=== PATIENT | female | born 1935 | race Hispanic/Latino ===

== ENCOUNTER → 2017-09-07 | Day surgery (SDC) | payer OTHER ==
[2017-09-04 12:50] LABS: BASOPHILS % 0.3 % (0.0-1.0); EOSINOPHILS # (AUTO) 0.2 (0.0-0.4); EOSINOPHILS % 2.6 % (0.0-6.0); HEMATOCRIT 42.4 % (34.2-44.1); HEMOGLOBIN 14.2 g/dL (12.0-16.0); LYMPHOCYTES # (AUTO) 2.5 (1.0-3.2); LYMPHOCYTES % 35.9 % (18.0-39.1); MEAN CORPUSCULAR HEMOGLOBIN 31.5 pg (28-32); MEAN CORPUSCULAR HGB CONC 33.5 g/dL (31-35); MONOCYTES # (AUTO) 0.4 (0.2-0.8); MONOCYTES % 5.9 % (4.4-11.3); NEUTROPHILS # (AUTO) 3.8 (2.1-6.9); NEUTROPHILS % 54.9 % (38.7-80.0); PLATELET COUNT 138 x10e3/uL (140-360); RED BLOOD COUNT 4.51 x10e6/uL (3.6-5.1); RED CELL DISTRIBUTION WIDTH 13.8 % (11.7-14.4)
[2017-09-04 13:12] LABS: ANION GAP 12.9 mmol/L (8-16); BLOOD UREA NITROGEN 12 mg/dL (7-26); BUN/CREATININE RATIO 14 (6-25); CALCIUM 8.8 mg/dL (8.4-10.2); CARBON DIOXIDE 22 mmol/L (22-29); CHLORIDE 112 mmol/L (98-107); CREATININE, SERUM 0.84 mg/dL (0.57-1.11); EST GLOMERULAR FILTRATION RATE > 60 ML/MIN (60-); GLUCOSE 144 mg/dL (74-118); POTASSIUM 3.9 mmol/L (3.5-5.1); SODIUM 143 mmol/L (136-145)
--- NOTE | 2017-09-04 15:50 | Diagnostic Imaging Report ---
PROCEDURE: Frontal and lateral views of the chest. COMPARISON: Patients [facility], , CHEST 2 VIEWS, 03/11/2017, 8:28. INDICATIONS: PRE-OPERATIVE CHEST X-RAY FOR MASTECTOMY FINDINGS: Lines/tubes: None. Lungs: The lungs are well inflated and clear. There is no evidence of pneumonia or pulmonary edema. Pleura: There is no pleural effusion or pneumothorax. Stable linear calcification in the lateral left hemithorax, likely pleural. Heart and mediastinum: The heart and the mediastinum are normal. Bones: No acute bony abnormality. Degenerative changes in the thoracic spine. IMPRESSION: 1. No acute cardiopulmonary abnormalities. Jovanni Zhang M.D. Dictated by: Jovanni Zhang M.D. on 09/04/2017 at 15:59 Electronically approved by: Jovanni Zhang M.D. on 09/04/2017 at 15:59
[~2017-09-07] MED LIST: ACETAMINOPHEN 1000 MG/100 ML IV ONE; AMLODIPINE BESY10 MG PO; CLONIDINE HCL0.1 MG PO; DEXAMETHASONE SOD PHOS INJ 4 MG/ML VIAL ONE; EPHEDRINE SULFATE INJ 50 MG/10 ML SYR ONE; FARXIGA; FENTANYL CITRATE/PF 100MCG/2 ML INJ ONE; GLIPIZIDE; HYDROCODONE/APAP 7.5MG-325MG 1 EA TAB ONE; KEFLEX500 MG PO; LEVOTHROID137 MCG PO; LIDOCAINE HCL 2% LOCAL INJ 5 ML SDV VIAL INJ ONE; LORAZEPAM0.5 MG PO; LOSARTAN POTAS100 MG PO; LOSARTAN-HCTZ1 EAC2; NORCO 5-325 TA1 EACH PO; NYSTATIN1 EAC1 PO; OMEPRAZOLE40 MG PO; ONDANSETRON HCL INJ 2 MG/ML VIAL ONE; PROPOFOL IV EMULSION 10 MG/ML 20 ML VIAL ONE; ROCURONIUM BROMIDE 10 MG/ML 5ML VIAL ONE; SEVOFLURANE INHAL SOLN 250 ML PEN BTL ONE; ULTRAM50 MG PO
--- NOTE | 2017-09-07 13:20 | Operative Report ---
DATE OF PROCEDURE: September 07, 2017 PREOPERATIVE DIAGNOSIS: Carcinoma of the right breast. POSTOPERATIVE DIAGNOSIS: Carcinoma of the right breast. OPERATION PERFORMED: Right total mastectomy. ANESTHESIA: General. COMPLICATIONS: None. ESTIMATED BLOOD LOSS: 25 mL. DESCRIPTION OF PROCEDURE: With the patient lying in bed in the supine position, under good general anesthesia, the right chest and breast were prepped with Betadine solution and draped in the usual manner. An elliptical incision was made to include the nipple-areolar complex as well as the previous biopsy site. Flaps were then developed at the superficial fascial level in all directions. The limits of the dissection were superiorly the clavicle, medially the sternum, inferiorly the rectus fascia, and laterally the latissimus muscle. The breast tissue was then taken off of the pectoralis major fascia with the cautery, and perfect hemostasis was ascertained. The lateral border of pectoralis major muscle was then dissected, and the breast tissue was totally removed. The specimen was sent for pathological examination. The whole area was then thoroughly irrigated. Perfect hemostasis was ascertained. Two #10 flat Marcelino-Benedict drains were left, one in the axilla and the other one in the pectoralis major, sutured to the skin with 2-0 silk. The skin was then closed with interrupted vertical mattress sutures of 2-0 and 3-0 silk. A dressing was applied. The sponge, lap and needle count was correct. Patient tolerated the procedure well and returned to the recovery room in stable condition. Job#: [id number]
== END | disposition home or self-care (01) ==
LOC: OR 06:46
PROVIDERS: ATTEND Surgery
DX: C50.911 Malignant neoplasm of unspecified site of right female breast (principal); I10 Essential (primary) hypertension; K21.9 Gastro-esophageal reflux disease without esophagitis; E11.9 Type 2 diabetes mellitus without complications; F32.9 Major depressive disorder, single episode, unspecified; Z01.810 Encounter for preprocedural cardiovascular examination; Z01.812 Encounter for preprocedural laboratory examination; Z01.818 Encounter for other preprocedural examination
CPT/HCPCS: 19303; 36415 ×2; 71046; 80048; 82948; 85025; 88307; 93005; J1100; J2001; J2405

== ENCOUNTER 2018-01-27 00:17 | Emergency (ER) | payer MEDICARE, OTHER ==
[~2018-01-27] VITALS: Ht 160 cm; Wt 83.0 kg
[~2018-01-27 00:17] MED LIST changes: -ACETAMINOPHEN 1000 MG/100 ML IV ONE; -DEXAMETHASONE SOD PHOS INJ 4 MG/ML VIAL ONE; -EPHEDRINE SULFATE INJ 50 MG/10 ML SYR ONE; -FENTANYL CITRATE/PF 100MCG/2 ML INJ ONE; -HYDROCODONE/APAP 7.5MG-325MG 1 EA TAB ONE; -LIDOCAINE HCL 2% LOCAL INJ 5 ML SDV VIAL INJ ONE; -ONDANSETRON HCL INJ 2 MG/ML VIAL ONE; -PROPOFOL IV EMULSION 10 MG/ML 20 ML VIAL ONE; -ROCURONIUM BROMIDE 10 MG/ML 5ML VIAL ONE; -SEVOFLURANE INHAL SOLN 250 ML PEN BTL ONE
--- OUTSIDE RECORDS SUMMARY | 2018-01-27 00:20 | XMS REPORT ---
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 Allergies, Adverse Reactions, Alerts This patient has no known allergies or adverse reactions. Medications This patient has no known medications. Results Test Description Test Time Test Comments Text Results Atomic Results Result Comments CHEST [address] [facility] [address] [id number] Patient Name: AILYN RODNEY MR #: [id number] : 1935 Age/Sex: 81/F Req #: [id number] Adm Physician: Ordered by: PATTIE JOHNSON MD Report #: [id number] Location: OR Room/Bed: Procedure: [id number] DX/CHEST 2 VIEWS Exam Date: 09/04/17 Exam Time: 1202 REPORT STATUS: Signed PROCEDURE: Frontal and lateral views of the chest. COMPARISON: [facility], CHEST 2 VIEWS, 2016, 8:28. INDICATIONS: PRE-OPERATIVE CHEST X-RAY FOR MASTECTOMY FINDINGS: Lines/tubes: None. Lungs: The lungs are well inflated and clear. There is no evidence of pneumonia or pulmonary edema. Pleura: There is no pleural effusion or pneumothorax. Stable linear calcification in the lateral left hemithorax, likely pleural. Heart and mediastinum: The heart and the mediastinum are normal. Bones: No acute bony abnormality. Degenerative changes in the thoracic spine. IMPRESSION: 1. No acute cardiopulmonary abnormalities. Efren Zhang M.D. Dictated by: Efren Zhang M.D. on 09/04/2017 at 15: 59 Electronically approved by: Efren Zhang M.D. on 09/04/2017 at 15:59 Dictated By: EFREN ZHANG MD [id number] Transcribed By: GENI on 09/04/17 [id number] COPY TO: PATTIE JOHNSON MD
[2018-01-27] MEDS ORDERED: TRAMADOL HCL 50 MG TAB PO ONE (01:00)
[2018-01-27] MEDS ORDERED: ONDANSETRON HCL 4 MG ORAL DISINTEGRATING TAB PO ONE (01:00)
[2018-01-27 01:12] LABS: BASOPHILS % 0.4 % (0.0-1.0); EOSINOPHILS # (AUTO) 0.2 (0.0-0.4); EOSINOPHILS % 1.7 % (0.0-6.0); HEMOGLOBIN 14.1 g/dL (12.0-16.0); LYMPHOCYTES # (AUTO) 1.8 (1.0-3.2); LYMPHOCYTES % 18.9 % (18.0-39.1); MEAN CORPUSCULAR HEMOGLOBIN 30.4 pg (28-32); MEAN CORPUSCULAR HGB CONC 33.6 g/dL (31-35); MEAN CORPUSCULAR VOLUME 90.5 fL (81-99); MONOCYTES # (AUTO) 0.5 (0.2-0.8); MONOCYTES % 4.7 % (4.4-11.3); NEUTROPHILS # (AUTO) 7.1 (2.1-6.9); NEUTROPHILS % 74.1 % (38.7-80.0); PLATELET COUNT 120 x10e3/uL (140-360); RED BLOOD COUNT 4.64 x10e6/uL (3.6-5.1); RED CELL DISTRIBUTION WIDTH 13.4 % (11.7-14.4)
[2018-01-27 01:21] LABS: BILIRUBIN,URINE NEGATIVE (NEGATIVE); CLARITY,URINE CLEAR (CLEAR); COLOR,URINE YELLOW (YELLOW); KETONES,URINE NEGATIVE (NEGATIVE); LEUKOCYTE ESTERASE ,URINE NEGATIVE (NEGATIVE); NITRITE,URINE NEGATIVE (NEGATIVE); PROTEIN,URINE DIPSTICK NEGATIVE (NEGATIVE); URINE UROBILINOGEN 0.2 mg/dL (0.2 - 1)
[2018-01-27 01:24] LABS: ALANINE AMINOTRANSFERASE 29 IU/L (0-55); ALBUMIN 3.8 g/dL (3.5-5.0); ALBUMIN/GLOBULIN RATIO 1.1 (0.8-2.0); ALKALINE PHOSPHATASE 108 IU/L (40-150); ANION GAP 11.9 mmol/L (8-16); BLOOD UREA NITROGEN 13 mg/dL (7-26); BUN/CREATININE RATIO 15 (6-25); CALCIUM 9.2 mg/dL (8.4-10.2); CARBON DIOXIDE 21 mmol/L (22-29); CHLORIDE 111 mmol/L (98-107); CREATININE, SERUM 0.85 mg/dL (0.57-1.11); EST GLOMERULAR FILTRATION RATE > 60 ML/MIN (60-); GLUCOSE 135 mg/dL (74-118); POTASSIUM 3.9 mmol/L (3.5-5.1); SODIUM 140 mmol/L (136-145)
--- NOTE | 2018-01-27 01:36 | Diagnostic Imaging Report ---
EXAM: CT Abdomen and Pelvis WITHOUT contrast INDICATION: Flank pain COMPARISON: None. TECHNIQUE: Abdomen and pelvis were scanned utilizing a multidetector helical scanner from the lung base to the pubic symphysis without administration of IV contrast. Absence of intravenous contrast decreases sensitivity for detection of focal lesions and vascular pathology. Coronal and sagittal reformations were obtained. Stone protocol is performed. IV CONTRAST: None. ORAL CONTRAST: Water RADIATION DOSE: Total DLP: 610.42 mGy*cm Estimated effective dose: (DLP x 0.015 x size factor) mSv COMPLICATIONS: None FINDINGS: LINES and TUBES: None. LOWER THORAX: Mosaic attenuation of the lung bases compatible with areas of air trapping or edema. The heart is mildly enlarged and demonstrate small pericardial effusion. HEPATOBILIARY: The liver is mildly nodular in contour. No focal hepatic lesions. No biliary ductal dilation. GALLBLADDER: There are cholecystectomy clips. SPLEEN: No splenomegaly. PANCREAS: No focal masses or ductal dilatation. ADRENALS: No adrenal nodules KIDNEYS/URETERS: No hydronephrosis. No cystic or solid mass lesions. No stones. GI TRACT: No abnormal distention, wall thickening, or evidence of bowel obstruction. There are diverticula within the colon without evidence of diverticulitis. Appendix is not clearly identified. There is however no fat stranding or adenopathy in the right lower quadrant to suggest appendicitis. PELVIC ORGANS/BLADDER: There are postop changes of hysterectomy and bilateral oophorectomies. LYMPH NODES: No lymphadenopathy. VESSELS: There is moderate atherosclerotic disease in the aorta and major arterial branches. PERITONEUM / RETROPERITONEUM: No free air or fluid. BONES: There are degenerative changes in the lumbar spine. SOFT TISSUES: Unremarkable. IMPRESSION: 1. No evidence of nephrolithiasis or hydronephrosis. 2. No evidence of acute intra-abdominal or pelvic abnormality. Signed by: Dr. Jose Manuel Carvalho M.D. on 01/27/2018 1:32 AM
[2018-01-27 01:41] LABS: BACTERIA,URINE RARE /HPF; EPITHELIAL CELLS,URINE FEW /LPF; RBC,URINE 0-5 /HPF (0-5)
== END 2018-01-27 02:40 | disposition home or self-care (01) ==
LOC: ER 00:17
DX: R10.31 Right lower quadrant pain (principal); N30.90 Cystitis, unspecified without hematuria; I10 Essential (primary) hypertension; E11.9 Type 2 diabetes mellitus without complications; E03.9 Hypothyroidism, unspecified; Z85.3 Personal history of malignant neoplasm of breast
CPT/HCPCS: 36415; 74176; 80053; 81001; 85025; 99284

== ENCOUNTER → 2020-02-07 | Day surgery (SDC) | payer OTHER ==
[2020-02-03 15:22] LABS: BASOPHILS # (AUTO) 0.1 (0.0-0.1); BASOPHILS % 0.7 % (0.0-1.0); EOSINOPHILS # (AUTO) 0.2 (0.0-0.4); EOSINOPHILS % 2.7 % (0.0-6.0); HEMATOCRIT 44.3 % (34.2-44.1); HEMOGLOBIN 14.2 g/dL (12.0-16.0); LYMPHOCYTES # (AUTO) 2.7 (1.0-3.2); LYMPHOCYTES % 36.4 % (18.0-39.1); MEAN CORPUSCULAR HEMOGLOBIN 29.7 pg (28-32); MEAN CORPUSCULAR HGB CONC 32.1 g/dL (31-35); MEAN CORPUSCULAR VOLUME 92.7 fL (81-99); MONOCYTES # (AUTO) 0.5 (0.2-0.8); MONOCYTES % 6.2 % (4.4-11.3); NEUTROPHILS % 53.7 % (38.7-80.0); PLATELET COUNT 146 x10e3/uL (140-360); RED BLOOD COUNT 4.78 x10e6/uL (3.6-5.1)
[~2020-02-07] MED LIST changes: +ANASTROZOLE1 MG PO; +BALANCED SALT SOLN (OPTH) 15 ML BTL IO ONE; +BENTY PO; +BENTYL PO; +CELEBREX100 MG PO; +DIOVAN160 MG PO; +ELIQUIS2.5 MG PO; +FENTANYL CITRATE/PF 100MCG/2 ML INJ ONE; +HYDRALAZINE HCL10 MG PO; +JARDIANCE10 MG PO; +LIDOCAINE 2% /EPINEPHRINE 20 ML SDV INJ ONE; +LIDOCAINE HCL 2% LOCAL INJ 5 ML SDV VIAL INJ ONE; +MIDAZOLAM HCL 2 MG/2 ML VIAL ONE; +NEOMYCIN/POLYMYXIN/DEX (OPTH) 3.5 GM TUBE ONE; +NIFEDIPINE10 MG PO; +POVIDONE IODINE 5% (OPTH) 30 ML BTL ONE; +PROPOFOL IV EMULSION 10 MG/ML 20 ML VIAL ONE; +SENNA S TABLET1 EACH PO; +ZANAFLEX4 M1 PO
[2020-02-07 17:05] VITALS: BP 164/74
== END | disposition home or self-care (01) ==
LOC: OR 12:03
PROVIDERS: ATTEND Ophthalmology
DX: H02.834 Dermatochalasis of left upper eyelid (principal); H02.831 Dermatochalasis of right upper eyelid; I10 Essential (primary) hypertension; E03.9 Hypothyroidism, unspecified; E11.9 Type 2 diabetes mellitus without complications; Z01.810 Encounter for preprocedural cardiovascular examination; Z01.812 Encounter for preprocedural laboratory examination; Z11.59 Encounter for screening for other viral diseases; Z79.84 Long term (current) use of oral hypoglycemic drugs
CPT/HCPCS: 36415; 82948; 85025; 87635; 93005; J2001; J2250; J3010

== ENCOUNTER → 2020-12-18 | Outpatient (CLI) | payer OTHER ==
[~2020-12-18] MED LIST changes: -BALANCED SALT SOLN (OPTH) 15 ML BTL IO ONE; -FENTANYL CITRATE/PF 100MCG/2 ML INJ ONE; -LIDOCAINE 2% /EPINEPHRINE 20 ML SDV INJ ONE; -LIDOCAINE HCL 2% LOCAL INJ 5 ML SDV VIAL INJ ONE; -MIDAZOLAM HCL 2 MG/2 ML VIAL ONE; -NEOMYCIN/POLYMYXIN/DEX (OPTH) 3.5 GM TUBE ONE; -POVIDONE IODINE 5% (OPTH) 30 ML BTL ONE; -PROPOFOL IV EMULSION 10 MG/ML 20 ML VIAL ONE
== END ==
LOC: DX 10:11
PROVIDERS: ATTEND Internal Medicine Hematology & Oncology
DX: C50.112 Malignant neoplasm of central portion of left female breast (principal)
CPT/HCPCS: 77080

== ENCOUNTER 2024-05-10 22:06 | Emergency (ER) | payer MEDICARE, OTHER ==
[~2024-05-10] VITALS: Ht 160 cm; Wt 80.7 kg
[2024-05-10 22:23] VITALS: TEMP 98.5
[2024-05-10] MEDS: TRAMADOL HCL 50 MG TAB PO STA (22:32)
[2024-05-10] MEDS: Morphine 4mg INJECTION 4 MG/ML INJ IM STA (23:53)
[2024-05-11] MEDS ORDERED: ULTRAM 50MG50 MG PO (00:02)
[2024-05-11] MEDS: ACETAMINOPHEN 325 MG TAB PO ONE (00:46)
[2024-05-11 01:30] VITALS: PULSE 58; RESP 18; O2SAT 97
== END 2024-05-11 01:30 | disposition home or self-care (01) ==
LOC: ER 22:10
DX: M25.511 Pain in right shoulder (principal); I16.0 Hypertensive urgency; I10 Essential (primary) hypertension; E11.9 Type 2 diabetes mellitus without complications; E03.9 Hypothyroidism, unspecified; F32.A Depression, unspecified; Z85.3 Personal history of malignant neoplasm of breast; Z96.651 Presence of right artificial knee joint
CPT/HCPCS: 73030; 99282; J2270

== ENCOUNTER 2024-07-12 04:28 | Emergency (ER) | payer MEDICARE, OTHER ==
[~2024-07-12] VITALS: Ht 160 cm; Wt 80.7 kg
[~2024-07-12 04:28] MED LIST changes: +ULTRAM 50MG50 MG PO
[2024-07-12 04:31] VITALS: TEMP 97.7
[2024-07-12 04:49] LABS: BASOPHILS % 0.4 % (0.0-1.0); EOSINOPHILS # (AUTO) 0.2 (0.0-0.4); EOSINOPHILS % 2.1 % (0.0-6.0); HEMATOCRIT 40.3 % (34.2-44.1); HEMOGLOBIN 12.9 g/dL (12.0-16.0); LYMPHOCYTES # (AUTO) 2.1 (1.0-3.2); LYMPHOCYTES % 28.3 % (18.0-39.1); MEAN CORPUSCULAR HEMOGLOBIN 30.9 pg (28-32); MEAN CORPUSCULAR VOLUME 96.6 fL (81-99); MONOCYTES # (AUTO) 0.5 (0.2-0.8); MONOCYTES % 6.6 % (4.4-11.3); NEUTROPHILS # (AUTO) 4.7 (2.1-6.9); NEUTROPHILS % 62.3 % (38.7-80.0); PLATELET COUNT 157 x10e3/uL (140-360); RED BLOOD COUNT 4.17 x10e6/uL (3.6-5.1); RED CELL DISTRIBUTION WIDTH 12.6 % (11.7-14.4); WHITE BLOOD COUNT 7.56 x10e3/uL (4.8-10.8)
[2024-07-12] MEDS: Morphine 4mg INJECTION 4 MG/ML INJ IV ONE (04:49)
[2024-07-12] MEDS: HYDRALAZINE HCL 20 MG/ML VIAL IV STA (04:50)
[2024-07-12] MEDS: ONDANSETRON HCL INJ 2MG/ML 2ML 2 MG/ML VIAL IV STA (04:50)
[2024-07-12 05:14] LABS: ALBUMIN 4.2 g/dL (3.5-5.0); ALBUMIN/GLOBULIN RATIO 1.1 (0.8-2.0); ANION GAP 14.9 mmol/L (8-16); BILIRUBIN,TOTAL 0.5 mg/dL (0.2-1.2); CREATININE, SERUM 1.06 mg/dL (0.57-1.11); POTASSIUM 3.9 mmol/L (3.5-5.1); TOTAL PROTEIN 8.1 g/dL (6.5-8.1)
[2024-07-12 05:20] LABS: TROPONIN I 0.009 ng/mL (0-0.300)
[2024-07-12 05:25] LABS: BILIRUBIN,URINE NEGATIVE (NEGATIVE); CLARITY,URINE SL CLOUDY (CLEAR); COLOR,URINE YELLOW (YELLOW); GLUCOSE, URINE NEGATIVE (NEGATIVE); KETONES,URINE NEGATIVE (NEGATIVE); LEUKOCYTE ESTERASE ,URINE TRACE (NEGATIVE); NITRITE,URINE POSITIVE (NEGATIVE); PH,URINE 6.5 (5 - 7); PROTEIN,URINE DIPSTICK NEGATIVE (NEGATIVE); URINE UROBILINOGEN 0.2 mg/dL (0.2 - 1)
[2024-07-12 05:31] LABS: BACTERIA,URINE MANY /HPF; EPITHELIAL CELLS,URINE FEW /LPF; RBC,URINE 0-5 /HPF (0-5)
[2024-07-12] MEDS ORDERED: IOPAMIDOL 370 MG/ML 100 ML INFUS..BTL INJ ONE (05:33)
[2024-07-12] MEDS: ACETAMINOPHEN 325 MG TAB PO ONE (05:37)
[2024-07-12 05:38] VITALS: PULSE 86; RESP 14
[2024-07-12] MEDS ORDERED: CEFTRIAXONE 1 GM VIAL ONE (05:57)
[2024-07-12] MEDS ORDERED: LEVOFLOXACIN750 MG PO (07:26)
[2024-07-12 09:08] VITALS: BP 111/64; PULSE 74; RESP 17; O2SAT 96
== END 2024-07-12 09:11 | disposition home or self-care (01) ==
LOC: ER 04:31
DX: R10.12 Left upper quadrant pain (principal); J18.9 Pneumonia, unspecified organism; N39.0 Urinary tract infection, site not specified; I10 Essential (primary) hypertension; E11.65 Type 2 diabetes mellitus with hyperglycemia; E03.9 Hypothyroidism, unspecified; F32.A Depression, unspecified; R94.31 Abnormal electrocardiogram [ECG] [EKG]; Z85.3 Personal history of malignant neoplasm of breast; Z96.651 Presence of right artificial knee joint
CPT/HCPCS: 36415; 71045; 74177; 80053; 81001; 82550; 83690; 84484; 85025; 93005; 99284; J0360; J0696; J2270; J2405; J2470; Q9967

== ENCOUNTER 2024-08-01 22:47 | Observation (INO) | payer MEDICARE, OTHER ==
[~2024-08-01] VITALS: Ht 160 cm; Wt 80.7 kg
[~2024-08-01 22:47] MED LIST changes: +LEVOFLOXACIN750 MG PO
[2024-08-01 23:12] VITALS: TEMP 98
[2024-08-01] MEDS: SODIUM CHLORIDE 0.9% 1000ML 1,000 ML IV STA (23:44)
[2024-08-01] MEDS: KETOROLAC TROMETHAMINE 30 MG/ML VIAL IV STA (23:44)
[2024-08-01 23:57] LABS: BASOPHILS % 0.7 % (0.0-1.0); EOSINOPHILS # (AUTO) 0.2 (0.0-0.4); EOSINOPHILS % 3.1 % (0.0-6.0); HEMOGLOBIN 12.3 g/dL (12.0-16.0); LYMPHOCYTES # (AUTO) 2.4 (1.0-3.2); LYMPHOCYTES % 42.3 % (18.0-39.1); MEAN CORPUSCULAR HEMOGLOBIN 30.5 pg (28-32); MEAN CORPUSCULAR HGB CONC 31.5 g/dL (31-35); MEAN CORPUSCULAR VOLUME 96.8 fL (81-99); MONOCYTES # (AUTO) 0.4 (0.2-0.8); MONOCYTES % 6.6 % (4.4-11.3); NEUTROPHILS # (AUTO) 2.7 (2.1-6.9); NEUTROPHILS % 47.1 % (38.7-80.0); PLATELET COUNT 152 x10e3/uL (140-360); RED BLOOD COUNT 4.03 x10e6/uL (3.6-5.1); RED CELL DISTRIBUTION WIDTH 12.7 % (11.7-14.4); WHITE BLOOD COUNT 5.74 x10e3/uL (4.8-10.8)
[2024-08-02 00:10] LABS: CLARITY,URINE CLEAR (CLEAR); COLOR,URINE YELLOW (YELLOW)
[2024-08-02 00:11] LABS: BILIRUBIN,URINE NEGATIVE (NEGATIVE); GLUCOSE, URINE NEGATIVE (NEGATIVE); KETONES,URINE NEGATIVE (NEGATIVE); LEUKOCYTE ESTERASE ,URINE TRACE (NEGATIVE); NITRITE,URINE NEGATIVE (NEGATIVE); PH,URINE 6 (5 - 7); PROTEIN,URINE DIPSTICK NEGATIVE (NEGATIVE); URINE UROBILINOGEN 0.2 mg/dL (0.2 - 1)
[2024-08-02 00:14] LABS: BACTERIA,URINE MANY /HPF; EPITHELIAL CELLS,URINE FEW /LPF; RBC,URINE 0-5 /HPF (0-5)
[2024-08-02 00:20] LABS: ALANINE AMINOTRANSFERASE 11 IU/L (0-55); ALBUMIN/GLOBULIN RATIO 1.1 (0.8-2.0); ALKALINE PHOSPHATASE 82 IU/L (40-150); ANION GAP 11.9 mmol/L (8-16); BILIRUBIN,TOTAL 0.4 mg/dL (0.2-1.2); BLOOD UREA NITROGEN 16 mg/dL (7-26); BUN/CREATININE RATIO 16 (6-25); CALCIUM 9.4 mg/dL (8.4-10.2); CARBON DIOXIDE 27 mmol/L (22-29); CHLORIDE 105 mmol/L (98-107); CREATINE KINASE 112 IU/L (29-168); CREATININE, SERUM 0.99 mg/dL (0.57-1.11); EST GLOMERULAR FILTRATION RATE 55 ML/MIN (>=60); GLUCOSE 129 mg/dL (74-118); LIPASE 96 U/L (8-78); POTASSIUM 3.9 mmol/L (3.5-5.1); SODIUM 140 mmol/L (136-145); TOTAL PROTEIN 7.5 g/dL (6.5-8.1)
[2024-08-02 00:25] LABS: TROPONIN I < 0.05 ng/mL (0.0-0.40)
[2024-08-02] MEDS ORDERED: IOPAMIDOL 370 MG/ML 100 ML INFUS..BTL INJ ONE (00:36)
[2024-08-02] MEDS: HYDRALAZINE HCL 20 MG/ML VIAL IV STA (01:10)
[2024-08-02] MEDS ORDERED: METOPROLOL TARTRATE INJ 1 MG/ML VIAL IV STA (02:10)
[2024-08-02] MEDS ORDERED: ONDANSETRON HCL INJ 2MG/ML 2ML 2 MG/ML VIAL IV PRN (03:15)
[2024-08-02] MEDS ORDERED: Morphine 2mg Syringe 2 MG/ML SYR IV PRN (03:15)
[2024-08-02] MEDS: SODIUM CHLORIDE 0.9% 1000ML 1,000 ML IV SCH (03:42)
[2024-08-02] MEDS: METHYLPREDNISOLONE SOD SUCC 125 MG/2ML VIAL IV STA (03:42)
[2024-08-02] MEDS: DIGOXIN INJ 0.25 MG/ML 2 ML AMP IV STA (03:42)
[2024-08-02 04:26] VITALS: PULSE 117; RESP 16; O2SAT 99
[2024-08-02 07:00] VITALS: PULSE 77; RESP 20
[2024-08-02] MEDS: METOPROLOL TARTRATE INJ 1 MG/ML VIAL IV STA (07:13)
[2024-08-02] MEDS: DILTIAZEM HCL 5 MG/ML 5 ML VIAL IV STA (07:14)
[2024-08-02] MEDS: DIPHENHYDRAMINE HCL INJ 50 MG/ML VIAL IV STA (07:14)
[2024-08-02 07:52] VITALS: PULSE 78; RESP 16; O2SAT 99
[2024-08-02 08:25] VITALS: BP 178/71; PULSE 75; RESP 19; TEMP 98; O2SAT 99
[2024-08-02] MEDS ORDERED: ASPIRIN81 MG PO (09:47)
[2024-08-02] MEDS ORDERED: CYCLOBENZAPRINE10 MG PO (09:49)
[2024-08-02] MEDS ORDERED: ATIVAN0.5 MG PO (09:55)
[2024-08-02 10:29] LABS: TROPONIN I 0.036 ng/mL (0-0.300)
[2024-08-02] MEDS ORDERED: LORAZEPAM 0.5 MG TAB PO PRN (10:45)
[2024-08-02] MEDS ORDERED: DEXTROSE 50% SYRINGE 50 ML IV PRN (10:45)
[2024-08-02] MEDS: PANTOPRAZOLE SODIUM 20 MG TABLET.DR PO SCH (11:27)
[2024-08-02] MEDS: CELECOXIB 100 MG CAP PO SCH (11:27)
[2024-08-02] MEDS: LIDOCAINE 4% PATCH TP SCH (11:38)
[2024-08-02] MEDS: INSULIN LISPRO 100 UNIT/1 ML 3ML VIAL SQ SCH (11:38)
[2024-08-02] MEDS: TRAMADOL HCL 50 MG TAB PO SCH (11:43)
[2024-08-02 12:14] VITALS: BP 177/73; PULSE 82; RESP 18; TEMP 97.6; O2SAT 98
[2024-08-02] MEDS: ACETAMINOPHEN 325 MG TAB PO ONE (16:57)
[2024-08-02 17:33] VITALS: BP 157/55; PULSE 70; RESP 19; TEMP 97.9; O2SAT 99
[2024-08-03] MEDS ORDERED: ANASTROZOLE 1 MG TAB PO SCH (09:00)
[2024-08-03] MEDS ORDERED: EMPAGLIFLOZIN 10 MG TABLET PO SCH (09:00)
[2024-08-03] MEDS ORDERED: ASPIRIN 81 MG CHEW TAB PO SCH (09:00)
== END 2024-08-02 17:40 | disposition home or self-care (01) ==
LOC: ER 22:51 → ERHOLD 08-02 03:17 → MED/SURG2 08-02 07:49
PROVIDERS: ADMIT Internal Medicine; ATTEND Internal Medicine
DX: R10.11 Right upper quadrant pain (principal); I47.9 Paroxysmal tachycardia, unspecified; I48.0 Paroxysmal atrial fibrillation; R07.89 Other chest pain; I44.0 Atrioventricular block, first degree; I10 Essential (primary) hypertension; E11.9 Type 2 diabetes mellitus without complications; Z79.84 Long term (current) use of oral hypoglycemic drugs; E03.9 Hypothyroidism, unspecified; K74.60 Unspecified cirrhosis of liver; F32.9 Major depressive disorder, single episode, unspecified; G31.84 Mild cognitive impairment of uncertain or unknown etiology; M19.91 Primary osteoarthritis, unspecified site; Z86.73 Personal history of transient ischemic attack (TIA), and cerebral infarction without residual deficits; Z85.3 Personal history of malignant neoplasm of breast; Z90.13 Acquired absence of bilateral breasts and nipples; Z96.651 Presence of right artificial knee joint; W19.XXXA Unspecified fall, initial encounter; Y92.009 Unspecified place in unspecified non-institutional (private) residence as the place of occurrence of the external cause; Z79.899 Other long term (current) drug therapy; Z79.82 Long term (current) use of aspirin
CPT/HCPCS: 36415 ×2; 71250; 74177; 80053; 81001; 82550 ×2; 82948; 83690; 84484 ×2; 85025; 93005 ×2; 93306; 94799; 99284; G0378; J0360; J1160; J1885; J2919; J7030 ×2; Q9967; J1200

== ENCOUNTER 2024-09-17 19:02 | Emergency (ER) | payer MEDICARE, OTHER ==
[~2024-09-17] VITALS: Ht 160 cm; Wt 80.7 kg
[~2024-09-17 19:02] MED LIST changes: +ASPIRIN81 MG PO; +ATIVAN0.5 MG PO; +CYCLOBENZAPRINE10 MG PO
[2024-09-17] MEDS: KETOROLAC TROMETHAMINE 60 MG/2 ML VIAL IM ONE (19:28)
[2024-09-17] MEDS ORDERED: NAPROSYN500 MG PO (19:29)
[2024-09-17] MEDS ORDERED: METHOCARBAMOL750 MG PO (19:29)
[2024-09-17 19:49] VITALS: PULSE 67; RESP 18; TEMP 98.1; O2SAT 98
== END 2024-09-17 19:55 | disposition home or self-care (01) ==
LOC: ER 19:38
DX: M25.511 Pain in right shoulder (principal); M54.2 Cervicalgia; G89.29 Other chronic pain; I10 Essential (primary) hypertension; E11.9 Type 2 diabetes mellitus without complications; E03.9 Hypothyroidism, unspecified; F32.A Depression, unspecified; Z85.3 Personal history of malignant neoplasm of breast
CPT/HCPCS: 99282; J1885